=== PATIENT | male | born 1945 | race Two or more races ===

== ENCOUNTER 2019-09-08 17:03 | Inpatient (IN) | payer MEDICARE, OTHER ==
[~2019-09-08] VITALS: Ht 160 cm; Wt 59.9 kg
[2019-09-08 17:03] VITALS: BP 156/79
--- NOTE | 2019-09-08 17:03 | NUR ---
ED Nurse Note: Patient ALONZO MARTINEZ from home c/o right hip pain S/P suspected fall today. Per EMS, pt was found on the floor by his caregiver. Noted with hematoma on right hip. Pt has hx of dementia. Alert and orientedx3, verbally responsive. Not in any distress. will cont to monitor.
--- NOTE | 2019-09-08 17:10 | NUR ---
ED Nurse Note: IV line established. Blood and urine collected and sent to lab.
[2019-09-08 17:42] LABS: APPEARANCE,URINE SLIGHTLY CLOUDY; BILIRUBIN, URINE NEGATIVE (NEGATIVE); GLUCOSE, URINE (UA) NEGATIVE (NEGATIVE); KETONES,URINE NEGATIVE (NEGATIVE); LEUKOCYTE ESTERASE ,URINE NEGATIVE (NEGATIVE); NITRITE,URINE NEGATIVE (NEGATIVE); PH,URINE 7 (4.5-8.0); PROTEIN,URINE 1+ (NEGATIVE); UROBILINOGEN,URINE 4 MG/DL (0.0-1.0)
[2019-09-08 17:45] LABS: COLOR,URINE YELLOW
[2019-09-08 17:50] LABS: HEMATOCRIT 42.1 % (42.0-52.0); HEMOGLOBIN 13.7 G/DL (14.2-18.0); INR 0.9 (0.9-1.1); LYMPHOCYTES % (AUTO) 13.5 % (20.0-45.0); MEAN CORPUSCULAR VOLUME 89 FL (80-99); MONOCYTES % (AUTO) 14.8 % (1.0-10.0); NEUTROPHILS % (AUTO) 68.7 % (45.0-75.0); PLATELET COUNT 256 K/UL (150-450); RED BLOOD COUNT 4.74 M/UL (4.70-6.10); RED CELL DISTRIBUTION WIDTH 13.5 % (11.6-14.8); WHITE BLOOD COUNT 10.3 K/UL (4.8-10.8)
[2019-09-08 18:04] LABS: CREATINE KINASE 352 U/L (26-308)
[2019-09-08 18:11] LABS: ALANINE AMINOTRANSFERASE 27 U/L (12-78); ALBUMIN 3.2 G/DL (3.4-5.0); ALBUMIN/GLOBULIN RATIO 0.7 (1.0-2.7); ALKALINE PHOSPHATASE 90 U/L (46-116); ANION GAP 8 mmol/L (5-15); ASPARTATE AMINO TRANSFERASE 34 U/L (15-37); BILIRUBIN,TOTAL 0.6 MG/DL (0.2-1.0); BLOOD UREA NITROGEN 26 mg/dL (7-18); CARBON DIOXIDE 26 MMOL/L (21-32); CHLORIDE 110 MMOL/L (98-107); CREATININE 0.8 MG/DL (0.55-1.30); POTASSIUM 3.9 MMOL/L (3.5-5.1); SODIUM 144 MMOL/L (136-145)
--- NOTE | 2019-09-08 18:43 | Emergency Room Report ---
History of Present Illness General Chief Complaint: Multiple Trauma/Fall Source: EMS Present Illness HPI Patient is a 74-year-old male who presented after unwitnessed fall. Patient was noted to have some bruising to his right side of his lower extremity. He reports having some increased difficulty with urination. He was brought from home by EMS. He had not been having any increased difficulty with breathing. Allergies: Coded Allergies: No Known Allergies (Unverified , 09/08/19) COVID-19 Screening Contact w/high risk pt: No Recent Travel to affected area: No Experienced COVID-19 symptoms?: No Patient History Reviewed Nursing Documentation: PMH: Agreed; PSxH: Agreed Nursing Documentation-PM Past Medical History: No History, Except For Hx Hypertension: Yes Review of Systems All Other Systems: negative except mentioned in HPI Physical Exam Vital Signs Date Time Temp Pulse Resp B/P (MAP) Pulse Ox O2 Delivery O2 Flow Rate FiO2 09/08/19 16:58 97.5 82 16 156/81 (106) 98 Room Air Sp02 EP Interpretation: reviewed, normal General Appearance: normal inspection, well appearing, no apparent distress, alert, GCS 15 Head: atraumatic ENT: normal ENT inspection, hearing grossly normal, normal voice Neck: normal inspection, full range of motion, supple, no bony tend Respiratory: normal inspection, lungs clear, normal breath sounds, no respiratory distress, no retraction, no wheezing Cardiovascular #1: regular rate, rhythm, no edema Gastrointestinal: normal inspection, normal bowel sounds, non tender, soft, no guarding, no hernia Genitourinary: no CVA tenderness Musculoskeletal: normal inspection, back normal, decreased range of motion, normal range of motion Neurologic: alert, motor strength/tone normal, sweetbread trimmer III-XII nml as tested, responsive, speech normal, normal inspection Psychiatric: normal inspection, judgement/insight normal, mood/affect normal Medical Decision Making Diagnostic Impression: Primary Impression: Fall Additional Impression: Hip fracture ER Course Patient presented for fall. Differential diagnosis included was not limited to rhabdomyolysis, CVA, close head injury, syncopal episode, hip fracture among others. Because of complexity of patient's case laboratory tests and imaging studies were ordered. Patient was noted to be awake and alert. CT imaging was ordered due to patient's recent fall. X-ray imaging of the pelvis showed femoral neck fracture. Patient was given pain medication. Dr. Blake Moran will be contacted for inpatient management due to panel physician. EKG interpreted by me showed normal sinus rhythm without acute ST or T wave changes rate of 78. Dr. Matthieu Cárdenas was contacted for orthopedic consult. Labs Test 09/08/19 17:10 White Blood Count 10.3 K/UL (4.8-10.8) Red Blood Count 4.74 M/UL (4.70-6.10) Hemoglobin 13.7 G/DL (14.2-18.0) Hematocrit 42.1 % (42.0-52.0) Mean Corpuscular Volume 89 FL (80-99) Mean Corpuscular Hemoglobin 29.0 PG (27.0-31.0) Mean Corpuscular Hemoglobin Concent 32.7 G/DL (32.0-36.0) Red Cell Distribution Width 13.5 % (11.6-14.8) Platelet Count 256 K/UL (150-450) Mean Platelet Volume 6.7 FL (6.5-10.1) Neutrophils (%) (Auto) 68.7 % (45.0-75.0) Lymphocytes (%) (Auto) 13.5 % (20.0-45.0) Monocytes (%) (Auto) 14.8 % (1.0-10.0) Eosinophils (%) (Auto) 1.0 % (0.0-3.0) Basophils (%) (Auto) 2.0 % (0.0-2.0) Prothrombin Time 9.6 SEC (9.30-11.50) Prothromb Time International Ratio 0.9 (0.9-1.1) Activated Partial Thromboplast Time 20 SEC (23-33) Urine Color Yellow Urine Appearance Slightly cloudy Urine pH 7 (4.5-8.0) Urine Specific [place] 1.015 (1.005-1.035) Urine Protein 1+ (NEGATIVE) Urine Glucose (UA) Negative (NEGATIVE) Urine Ketones Negative (NEGATIVE) Urine Blood Negative (NEGATIVE) Urine Nitrite Negative (NEGATIVE) Urine Bilirubin Negative (NEGATIVE) Urine Urobilinogen 4 MG/DL (0.0-1.0) Urine Leukocyte Esterase Negative (NEGATIVE) Urine RBC 0-2 /HPF (0 - 0) Urine WBC 0 /HPF (0 - 0) Urine Squamous Epithelial Cells Occasional /LPF Urine Amorphous Sediment Moderate /LPF (NONE) Urine Bacteria Few /HPF (NONE) Sodium Level 144 MMOL/L (136-145) Potassium Level 3.9 MMOL/L (3.5-5.1) Chloride Level 110 MMOL/L (98-107) Carbon Dioxide Level 26 MMOL/L (21-32) Anion Gap 8 mmol/L (5-15) Blood Urea Nitrogen 26 mg/dL (7-18) Creatinine 0.8 MG/DL (0.55-1.30) Estimat Glomerular Filtration Rate > 60 mL/min (>60) Glucose Level 110 MG/DL (74-106) Calcium Level 9.0 MG/DL (8.5-10.1) Total Bilirubin 0.6 MG/DL (0.2-1.0) Aspartate Amino Transf (AST/SGOT) 34 U/L (15-37) Alanine Aminotransferase (ALT/SGPT) 27 U/L (12-78) Alkaline Phosphatase 90 U/L (46-116) Total Creatine Kinase 352 U/L (26-308) Pro-B-Type Natriuretic Peptide 109 pg/mL (0-125) Total Protein 7.7 G/DL (6.4-8.2) Albumin 3.2 G/DL (3.4-5.0) Globulin 4.5 g/dL Albumin/Globulin Ratio 0.7 (1.0-2.7) Thyroid Stimulating Hormone (TSH) 1.325 uiU/mL (0.358-3.740) Last Vital Signs Date Time Temp Pulse Resp B/P (MAP) Pulse Ox O2 Delivery O2 Flow Rate FiO2 09/08/19 17:03 82 16 Room Air 09/08/19 17:03 97.5 156/79 99 Status: unchanged Disposition: ADMITTED INPATIENT Condition: Stable Prakash Damon MD Sep 08, 2019 18:43
[2019-09-08] MEDS ORDERED: Morphine Sulfate 2mg/ml Inj(IV/IM USE ONLY) IVP ONE (18:45)
[2019-09-08 19:00] VITALS: BP 145/75
[2019-09-08] MEDS ORDERED: LISINOPRIL5 MG ORAL (19:21)
--- NOTE | 2019-09-08 19:29 | NUR ---
Patients son Roosevelt called, left his number [phone] to be called.
--- NOTE | 2019-09-08 19:45 | NUR ---
Spoke with Roosevelt-patients son-informed that patient needs to stay in the hospital-either [facility] or transfer. Roosevelt appreciated, will wait until final destination. We will inform him.
[2019-09-08] MEDS ORDERED: Morphine Sulfate 4mg/ml Inj (IV USE ONLY) IVP PRN (20:30)
[2019-09-08] MEDS ORDERED: Morphine Sulfate 2mg/ml Inj(IV/IM USE ONLY) IVP PRN (20:30)
[2019-09-08] MEDS ORDERED: Nitroglycerin Subl 0.4mg tab SL PRN (20:30)
[2019-09-08] MEDS ORDERED: Acetaminophen 650 MG SUPP RECTAL PRN ×2 (20:30)
[2019-09-08] MEDS ORDERED: Miralax 17gm pkt ORAL PRN (20:30)
--- NOTE | 2019-09-08 20:48 | NUR ---
ED Nurse Note: Pt was taken for CT via billy, accompanied by a tech.
--- NOTE | 2019-09-08 20:48 | NUR ---
Jesse medina in EDM - 09/08/19 at 2055 by CHAYO ED Nurse Note: Pt was taken for Xray via billy, accompanied by a tech.
--- NOTE | 2019-09-08 20:55 | NUR ---
ED Nurse Note: Pt came back from CT, not in any distress.
[2019-09-08] MEDS: Docusate 100mg cap ORAL SCH (20:58)
--- NOTE | 2019-09-08 21:18 | Diagnostic Imaging Report ---
Indication: Headache Technique: Contiguous 5 mm thick transaxial imaging of the head obtained in a Siemens Sensation [address] scanner. Soft tissue and bone windows generated. Automatic Exposure Control was utilized. Total Dose length Product (DLP): 1018.8mGycm CT Dose Index Volume (CTDIvol): 53.4 mGy Comparison: none Findings: There is mild prominence of the ventricles, basal cisterns, and cerebral sulci consistent with atrophy. Mild, nonspecific, white matter hypoattenuation is noted throughout the brain consistent with chronic small vessel disease. There is no midline shift, edema, acute hemorrhage, mass effect, or abnormal extra-axial fluid collections. Bones are unremarkable. Impression: No acute intracranial bleed, mass effect or edema. Mild atrophy of the brain. Nonspecific white matter hypoattenuation probably due to chronic small vessel disease. The CT scanner at [facility] is accredited by the [employer] and the scans are performed using dose optimization techniques as appropriate to a performed exam including Automatic Exposure control.
[2019-09-08 21:50] VITALS: BP 147/82
--- NOTE | 2019-09-08 21:50 | NUR ---
TRANSFER TO FLOOR: Patient transferred to Medrg unit. Report given to Magi RN. Pt alert and orientedx3, verbally responsive. Not in any distress. No SOB. Afebrile. Sinus rhythm. IV line on right AC 20g patent and intact. With FC 16Fr patent and draining well. No skin issues. Med recon done. All belongings sent with the patient. Son aware of the transfer.
--- NOTE | 2019-09-08 21:54 | NUR ---
ED Nurse Note: Report given to Magi RN.
--- NOTE | 2019-09-08 21:58 | NUR ---
Spoke with Roosevelt-patients son, informed him of patients location, phone number for the nurses station also given.
[2019-09-08] MEDS: Enoxaparin 40mg Inj SUBQ SCH (22:00)
--- NOTE | 2019-09-08 22:00 | NUR ---
NURSE NOTES: PATIENT WAS SAFELY TRANSFERRED TO UNIT VIA RNEY, BELONGING LIST REVIEWED AND SIGNED. PATIENT IS AWAKE, AAOX1, ON ROOM AIR, NO ACUTE RESPIRATORY DISTRESS NOTED. HEMATOMA NOTED ON RIGHT HIP, BRUISING ON BILATERAL ELBOWS, AND RIGHT THIGHT. BILATERAL HEELS BOGGY. MARTINEZ IN IS PLACE, INTACT AND DRAINING WELL, MARTINEZ ANCHOR IN PLACE. IV ON RIGHT AC IS INTACT AND PATENT. BED IS LOCKED AND LOW, BED ALARMS ACTIVE, SIDE RAILS UPX2 AND CALL LIGHT IS WITHIN REACH, WILL CONTINUE TO MONITOR.
--- NOTE | 2019-09-08 22:04 | NUR ---
NURSE NOTES: PATIENT IS AT HIGH RISK FOR FALL. PLACED PATIENT IN ROOM NEAR NURSING STATION (411). YELLOW SOCKS, YELLOW GOWN, YELLOW ARM BAND IMPLEMENTED. BED ALARMS ACTIVE ON ZONE 1, SIDE RAILS UP X3, CALL LIGHT IS WITHIN REACH, PATIENT DEMONSTRATED CALL LIGHT USE. COMMUNICATED WITH TRAFFIC COURT REFEREE, STAFF AND CHARGE NURSE TO PERFORM FREQUENT ROUNDING. WILL CONTINUE TO MONITOR PATIENT CLOSELY.
--- NOTE | 2019-09-08 22:05 | NUR ---
NURSE NOTES: RECEIVED ADMISSION ORDERS FROM DR. REID, CONSULT WITH DR. PACK.
--- NOTE | 2019-09-08 22:30 | NUR ---
NURSE NOTES: PATIENT IS CONFUSED, PULLED OUT HIS MARTINEZ CATHETER. NEW MARTINEZ CATH WAS INSERTED, 16FR, INTACT AND PATENT. RECEIVED ORDERS FROM DR. PACK TO HOLD LOVENOX AND INITIATE RESTRAINTS FOR SAFELY.
[2019-09-09] VITALS: BP 144/45
[2019-09-09 04:00] VITALS: BP 139/70
--- NOTE | 2019-09-09 05:09 | NUR ---
NURSE NOTES: PICTURES TAKEN AND UPLOADED.
[2019-09-09 06:40] LABS: BASOPHILS % (AUTO) 0.9 % (0.0-2.0); EOSINOPHILS % (AUTO) 1.6 % (0.0-3.0); HEMATOCRIT 36.8 % (42.0-52.0); HEMOGLOBIN 12.8 G/DL (14.2-18.0); MEAN CORPUSCULAR VOLUME 87 FL (80-99); MONOCYTES % (AUTO) 14.4 % (1.0-10.0); NEUTROPHILS % (AUTO) 67.1 % (45.0-75.0); PLATELET COUNT 221 K/UL (150-450); RED BLOOD COUNT 4.23 M/UL (4.70-6.10); RED CELL DISTRIBUTION WIDTH 12.4 % (11.6-14.8); WHITE BLOOD COUNT 10.5 K/UL (4.8-10.8)
--- NOTE | 2019-09-09 06:51 | NUR ---
NURSE NOTES: SPOKE TO PATIENT'S SON ANA ESTRELLA REGARDING CONSENT FOR PATIENT'S RIGHT HIP HEMIARTHROPLASTY. SON INFORMED THAT HE WILL NOT CONSENT AT THIS TIME DUE TO INSURANCE ISSUE. HE IS UNSURE IF THE PROCEDURE WILL BE COVERED UNDER INSURANCE. HE IS STILL WAITING FOR THE INSURANCE COMPANY TO CALL BACK. WILL ENDORSE TO MORNING SHIFT TO FOLLOW UP.
[2019-09-09 07:02] LABS: ALANINE AMINOTRANSFERASE 20 U/L (12-78); ALBUMIN 2.8 G/DL (3.4-5.0); ALBUMIN/GLOBULIN RATIO 0.7 (1.0-2.7); ALKALINE PHOSPHATASE 75 U/L (46-116); ANION GAP 7 mmol/L (5-15); ASPARTATE AMINO TRANSFERASE 25 U/L (15-37); BILIRUBIN,TOTAL 0.9 MG/DL (0.2-1.0); BLOOD UREA NITROGEN 23 mg/dL (7-18); CALCIUM 8.5 MG/DL (8.5-10.1); CARBON DIOXIDE 27 MMOL/L (21-32); CHLORIDE 106 MMOL/L (98-107); CREATININE 0.7 MG/DL (0.55-1.30); POTASSIUM 3.9 MMOL/L (3.5-5.1); SODIUM 140 MMOL/L (136-145)
--- NOTE | 2019-09-09 07:15 | NUR ---
NURSE NOTES:Handoff received from Magi,RN. Patient received awake and alert and able to make needs known, Patient is confused and on bilateral soft wrist restraints due to impulsiveness and pulling at lines, patient removed simpson cath. Patient is on room air, and is NPO for procedure which family did not consent to. No diet order as NPO will follow up with MD. Patient has Simpson placed on 09/07 for retention. IV site is clean dry and intact, will continue to monitor patient.
--- NOTE | 2019-09-09 07:56 | NUR ---
HAND-OFF: Report given to SANDRA AGARWAL. Endorsed that patient is a fall risk. Endorsed to follow up with son, and dr. pyle, and dr. li for diet.
[2019-09-09 08:00] VITALS: BP 130/74
--- NOTE | 2019-09-09 08:33 | NUR ---
NURSE NOTES: Patient's son Roosevelt called and stated that Dr Lloyd has accepted patient at [facility] which is the patient's regular hospital. Informed Primary MD li to request transfer on behalf of patient family.
[2019-09-09] MEDS: Lisinopril 2.5mg tab ORAL SCH (09:39)
[2019-09-09] MEDS: Docusate 100mg cap ORAL SCH ×2 (09:39→20:29)
--- NOTE | 2019-09-09 11:32 | NUR ---
NURSE NOTES: Left message for Dr. Moran regarding patient & family request to transfer to [facility] to have surgery. Bed available at [facility] and accepting physician is Gabino Addendum: 09/09/19 at 1135 by LEON ARAUJO RN This note was written by Leon Araujo RN not Aamir Sherman RN. Leon is relieving Aamir while on lunch
--- NOTE | 2019-09-09 11:38 | NUR ---
*-* NO INSURANCE INFORMATION ON THE BAR UNABLE TO SEND CLINICALS OR REVIEWS *-*
--- NOTE | 2019-09-09 11:45 | NUR ---
NURSE NOTES: Called Dr Li to let him know that patient has been accepted at [facility] via Doctor Gabino. Dr li said to confirm patient has a bed at the hospital and then the transfer order can be processed. called bilingual patient support caseworker and asked them to confirm that patient has been accepted to [facility].
--- NOTE | 2019-09-09 11:58 | NUR ---
MANAGER INTERNAL NOTE CM INFORMED BY SANDRA AGARWAL THAT PATIENT IS TO BE TRANSFERRED TO [facility] UNDER THER CARE OF DR. ARAGON. CALL MADE TO [facility] TO CONFIRM ACCEPTANCE AT [phone]. S/W PERFECTO. PER PERFECTO, PATIENTS FAMILY HAS REQUESTED TRANSFER TO [facility]. PATIENT NEEDS TO HAVE AN ACCEPTING ORTHOPEDIC. STATES DR. ARAGON IS NOT AN ORTHOPEDIC MD THEREFORE THEY CANNOT HONOR THE TRANSFER REQUEST. STATES THAT THIS WOULD BE A LATERAL TRANSFER AND LATERAL TRANSFERS ARE NOT BEING ACCOMMODATED AT THIS TIME. Addendum: 09/09/19 at 1216 by CLARI MONSIVAIS LVN LVN CALL BACK RECEIVED FROM PERFECTO AT [facility] REQUESTING CLINICALS FOR REVIEW BY HOSPITALIST TEAM CLINICALS FAXED TO F: [phone]
[2019-09-09 12:00] VITALS: BP 124/70
--- NOTE | 2019-09-09 12:15 | Diagnostic Imaging Report ---
Indication: pain Pelvic trauma and pain Findings: Single AP view of the pelvis was performed. There is an acute intracapsular fracture of the right femoral neck. Bones are osteopenic. No other fractures are seen. IMPRESSION: Limited study showing an acute mildly displaced intracapsular fracture of the right femoral neck
--- NOTE | 2019-09-09 14:22 | NUR ---
NURSE NOTES: Asia from case management notified me that patient cannot be transferred to [facility] at this time as they are not accepting transfers. Notified Luz Maria Li to update family that patient is not being transferred. Guillermo asked if patient is able to be discharged, informed family that patient likely needs to have surgery and asked if they wanted to go forward with surgery here or not.
--- NOTE | 2019-09-09 14:29 | History and Physical Report ---
DATE OF ADMISSION: 09/08/2019 CHIEF COMPLAINT AND REASON FOR HOSPITALIZATION: The patient admitted with a hip fracture. HISTORY OF PRESENT ILLNESS: The patient has dementia according to the family otherwise been in good health. Had a ground level fall with a right hip fracture. ALLERGIES: None known. HABITS: He is a nonsmoker and nondrinker. MEDICATIONS: No regular medicines. PAST SURGICAL HISTORY: Left knee. SYSTEM REVIEW: Negative, but the patient is inarticulate historian. The family states this is his only major medical problem. PHYSICAL EXAMINATION: VITAL SIGNS: Temperature 97.8, pulse 72, respirations 20, blood pressure 139/70. GENERAL: This is a well-developed man, alert, no acute distress. HEAD, EYES, EARS, NOSE, AND THROAT: Sclerae are nonicteric. Ocular motions intact in all directions. Oral mucosa is moist. NECK: No adenopathy. LUNGS: Clear. HEART: Regular rhythm. No murmur. ABDOMEN: Soft without organomegaly or masses. EXTREMITIES: No edema. His legs are crossed. The feet are warm. NEUROLOGIC: He is alert and responsive. Ocular motions intact in all directions. Smile symmetric. Tongue is midline. He moves all extremities. IMPRESSION: 1. Ground-level fall. 2. Right hip fracture. 3. History of prior left knee surgery. 4. Dementia. 5. CT brain scan showed mild involutional changes. 6. Incomplete database. PLAN: The patient's laboratories have been reviewed. He is being hydrated and prepared for possible hip surgery. He does have a low serum albumin of uncertain reason. Remainder of laboratories are unremarkable at this time. We will watch him closely for development of any complications. I will get orthopedic consultation. The family's request a transfer to [facility], but I do not know if this is feasible with the current bed situation. Blake Moran M.D. DR: LORENA JOB#: [id number] CC:
--- NOTE | 2019-09-09 15:11 | NUR ---
*-* INSURANCE *-* ALL AVAILABLE CLINICAL HAVE BEEN FAXED TO: Rosi CM: Bimal #[phone]
--- NOTE | 2019-09-09 15:16 | NUR ---
PEDIATRIC DERMATOLOGIST NOTE CALL RECEIVED FROM SHARONA AT [facility]. NO NEED FOR HIGHER LEVEL OF CARE DX WOULD BE A LATERAL TRANSFER. STATES THAT PATIENTS CASE HAS BEEN REVIEWED AND IT HAS BEEN DETERMINED THAT [place] C[place] CAN [place] [facility] [place]GED ACCORDINGLY UPON MEDICAL CLEARANCE. CHARGE NURSE ZARA DELGADO
[2019-09-09 16:00] VITALS: BP 131/74
--- NOTE | 2019-09-09 17:08 | NUR ---
CASE MANAGEMENT:INITIAL REVIEW 74 YR OLD MALE BIBA FROM HOME CC;MULTIPLE TRAUMA/FALL SI;RIGHT HIP FRACTURE 98.2 88 19 156/81 95% ON RA BUN 26 TCK 352 ALB 3.2 HIP/PELVIS X=RAY ~ Limited study showing an acute mildly displaced intracapsular fracture of the right femoral neck HEAD CT ~ No acute intracranial bleed, mass effect or edema. IS;MORPHINE IV ONCE ADMITTED TO MED SURG DCP;FROM HOME
--- NOTE | 2019-09-09 19:17 | NUR ---
HAND-OFF: Report given to SANDRA Mendez.
--- NOTE | 2019-09-09 19:30 | NUR ---
NURSE NOTES: Patient in bed, confused, no SOB noted. With Holguin cath intact. With bilateral soft wrist restraints. Pulses palpable. Call lights for assistance in reach. Bed in lowest position, lock engaged and alarm on. Will continue plan of care.
[2019-09-09 20:00] VITALS: BP 136/81
[2019-09-09] MEDS: Enoxaparin 40mg Inj SUBQ SCH (20:30)
[2019-09-10] VITALS: BP 129/76
[2019-09-10 04:00] VITALS: BP 145/83
--- NOTE | 2019-09-10 06:39 | NUR ---
NURSE NOTES: Patient was combative when staff was cleaning him.
--- NOTE | 2019-09-10 07:15 | NUR ---
NURSE NOTES: Handoff received from SANDRA Crowley. Stated that patient is combative and lashes out when cleaned. Patient is confused, in bilateral soft wrist restraints for removing lines. Patient resting in bed, still NPO, IV fluids running at prescribed rate. On room air, no signs of distress noted. Patient denies pain at this time. call light is at reach, bed in the low and locked position with bed alarm on, will continue to monitor patient.
--- NOTE | 2019-09-10 07:34 | NUR ---
NURSE NOTES:Dr Moran made rounds on patient. No new orders given.
--- NOTE | 2019-09-10 07:42 | NUR ---
HAND-OFF: Report given to SANDRA Robles.
[2019-09-10 07:53] VITALS: BP 143/77
--- NOTE | 2019-09-10 08:30 | General Progress Note ---
Assessment/Plan Problem List: (1) Alzheimer disease ICD Codes: G30.9 - Alzheimer's disease, unspecified; F02.80 - Dementia in other diseases classified elsewhere without behavioral disturbance SNOMED: 36580567 (2) Hip fracture ICD Codes: S72.009A - Fracture of unspecified part of neck of unspecified femur , initial encounter for closed fracture SNOMED: 832438913 (3) Fall ICD Codes: W19.XXXA - Unspecified fall, initial encounter SNOMED: 9678455, 660099857 Assessment/Plan: Called [facility] no bed, needs hip surgery Subjective Constitutional: Reports: weakness HEENT: Reports: no symptoms Cardiovascular: Reports: no symptoms Respiratory: Reports: no symptoms Gastrointestinal/Abdominal: Reports: no symptoms Genitourinary: Reports: other - simpson Neurologic/Psychiatric: Reports: no symptoms Endocrine: Reports: no symptoms Hematologic/Lymphatic: Reports: no symptoms Allergies: Coded Allergies: No Known Allergies (Unverified , 09/08/19) Objective Last 24 Hour Vital Signs Date Time Temp Pulse Resp B/P (MAP) Pulse Ox O2 Delivery O2 Flow Rate FiO2 09/10/19 07:53 97.7 71 18 143/77 (99) 97 09/10/19 04:00 97.4 72 22 145/83 (103) 97 09/10/19 00:00 98.0 79 20 129/76 (93) 93 09/09/19 20:53 Room Air 09/09/19 20:00 98.2 78 20 136/81 (99) 96 09/09/19 16:00 98.0 79 19 131/74 (93) 97 09/09/19 12:00 98.2 81 20 124/70 (88) 98 09/09/19 09:39 130/74 09/09/19 09:00 Room Air Intake and Output 09/09/19 09/10/19 19:00 07:00 Output Total 800 ml 800 ml Balance -800 ml -800 ml Output Urine Total 800 ml 800 ml Height (Feet): 5 Height (Inches): 4.00 Weight (Pounds): 145 General Appearance: no apparent distress EENT: normal ENT inspection Neck: normal alignment Cardiovascular: normal rate, regular rhythm Respiratory/Chest: lungs clear Abdomen: non tender, soft Extremities: other - min eccymoses r hip Edema: no edema noted Arm (L), no edema noted Arm (R), no edema noted Leg (L), no edema noted Leg (R), no edema noted Pedal (L), no edema noted Pedal (R), no edema noted Generalized Blake Moran MD Sep 10, 2019 08:30
[2019-09-10] MEDS: Docusate 100mg cap ORAL SCH ×2 (09:01→20:43)
[2019-09-10] MEDS: Lisinopril 2.5mg tab ORAL SCH (09:01)
--- NOTE | 2019-09-10 09:31 | NUR ---
SOFTWARE ENGINEER WEB SERVICES NOTE CALL MADE TO JAN RUSSELL FOR [facility] @ [phone] INFORMED OF THAT SON IS CONCERNED IN RE TO PATIENTS HOSPITAL STAY NOT BEING COVERED BY INSURANCE. INFORMED DREW THAT TRANSFER REQUEST WAS SUBMITTED TO [facility] AND DENIED PER SHARONA. PER SHARONA, PATIENT DOES NOT REQUIRE HIGHER LEVEL OF CARE. PER DREW, CONFIRMED PATIENTS HOSPITALIZATION WILL BE AUTHORIZED INCLUDING ANY SURGICAL PROCEDURES. DREW STATES TO CONTACT HIM FOR ASSISTANCE WITH REHABILITATION SERVICES WHEN NEEDED. PATIENTS SON ANA ([phone]) AND INFORMED THAT HIS HOSPITALIZATION IS [facility]ED [facility]
[2019-09-10 10:56] LABS: INR 0.9 (0.9-1.1)
--- NOTE | 2019-09-10 11:00 | Consultation ---
DATE OF CONSULTATION: 09/09/2019 ORTHOPEDIC CONSULTATION CONSULTING PHYSICIAN: Trey Cárdenas M.D. CHIEF COMPLAINT: HISTORY OF PRESENT ILLNESS: This is a pleasant 74-year-old gentleman who presented after he had a witnessed fall. He was brought to the emergency room last night. Orthopedic consultation obtained for further care and recommendation. Overnight, the patient was pretty confused. He pulled out his Holguin catheter. PAST MEDICAL HISTORY: Per the intake chart. SURGICAL HISTORY: Per the intake chart. MEDICATIONS: Per the intake chart. PHYSICAL EXAMINATION: EXTREMITIES: He has some ecchymosis along the right hip. Right shortened and internally rotated. Dorsalis pedal pulse +2. Posterior calf is soft. DIAGNOSTIC DATA: Imaging study showed displaced femoral neck fracture ASSESSMENT: Displaced femoral neck fracture. DISCUSSION: At this point, what I recommend is to go ahead and proceed with right hip hemiarthroplasty. Risks, limitations, expectations, and complications of procedure were discussed in detail with the son. Once we medically optimized in preparation of the surgery. ADDENDUM TO NOTE: The patient's family member has requested a transfer to [facility] for definitive treatment as the patient bed available there upon transfer. If the patient is not able to be transferred, however, then we recommend proceeding with right hip hemiarthroplasty. I will continue to see the patient while in-house . Trey Cárdenas M.D. DR: KARY JOB#: [id number] CC:
--- NOTE | 2019-09-10 11:40 | NUR ---
NURSE NOTES:Pre-op checklist completed with information available from chart, as patient is confused. Patient has been NPO since 09/07 admission date and time. sports trainer Fiona verified that primary MD Moran is aware and okay with surgery continuing today. Consent received via telephone from the son Roosevelt, consent obtained from Fiona and Patricia montgomery RN, consent verified and placed in the chart.
[2019-09-10 12:00] VITALS: BP 136/80
--- NOTE | 2019-09-10 13:43 | NUR ---
*-* INSURANCE *-* ALL AVAILABLE CLINICAL HAVE BEEN FAXED TO: Rosi CM: Bimal #[phone]
--- NOTE | 2019-09-10 13:49 | NUR ---
CHARGE NURSE NOTE: Right hip surgery postponed till tomorrow around 11am. NPO after midnight.
--- NOTE | 2019-09-10 15:24 | NUR ---
CASE MANAGEMENT:REVIEW SI;RIGHT HIP FRACTURE 98.0 73 22 145/83 93% ON RA BUN 23 IS;MORPHINE IV Q3 HRS PRN IVF NS @ 100 ML/HR LOVENOX SUBQ QD ZESTRIL PO QD MED SURG STATUS DCP;FROM HOME PLAN;NPO AFTER MIDNIGHT RT HIP HEMIARTHROPLASTY
[2019-09-10 16:00] VITALS: BP 129/77
--- NOTE | 2019-09-10 19:25 | NUR ---
HAND-OFF: Report given to SANDRA Elise.
--- NOTE | 2019-09-10 19:30 | NUR ---
NURSE NOTES: Patient asleep in bed, no SOB noted, with signs of minimal pain. With bilateral soft wrist restraints. Call light in reach. Bed in lowest, lock engaged and alarm on. Will continue plan of care.
[2019-09-10 20:00] VITALS: BP 121/77
[2019-09-10] MEDS: Enoxaparin 40mg Inj SUBQ SCH (20:44)
--- NOTE | 2019-09-10 21:30 | NUR ---
NURSE NOTES: Attempted to release patient's left hand from restraint but he became combative and hitting RN. Applied restraint back with safety measures. Will continue to monitor.
[2019-09-11] VITALS (16 sets, daily range): BP systolic 114–146; BP diastolic 44–94
[2019-09-11 06:42] LABS: EOSINOPHILS % (AUTO) 2.7 % (0.0-3.0); HEMATOCRIT 37.1 % (42.0-52.0); HEMOGLOBIN 12.8 G/DL (14.2-18.0); LYMPHOCYTES % (AUTO) 17.1 % (20.0-45.0); MEAN CORPUSCULAR VOLUME 86 FL (80-99); MONOCYTES % (AUTO) 13.6 % (1.0-10.0); NEUTROPHILS % (AUTO) 65.6 % (45.0-75.0); PLATELET COUNT 254 K/UL (150-450); RED BLOOD COUNT 4.31 M/UL (4.70-6.10); RED CELL DISTRIBUTION WIDTH 11.6 % (11.6-14.8)
[2019-09-11 07:18] LABS: ANION GAP 10 mmol/L (5-15); BLOOD UREA NITROGEN 13 mg/dL (7-18); CALCIUM 8.3 MG/DL (8.5-10.1); CARBON DIOXIDE 24 MMOL/L (21-32); CHLORIDE 103 MMOL/L (98-107); CREATININE 0.6 MG/DL (0.55-1.30); POTASSIUM 3.5 MMOL/L (3.5-5.1); SODIUM 137 MMOL/L (136-145)
--- NOTE | 2019-09-11 07:48 | NUR ---
HAND-OFF: Report given to SANDRA Porter.
--- NOTE | 2019-09-11 07:50 | NUR ---
NURSE NOTES: Received patient in bed,awake, not in respiratory/cardiac distress. V/S stable. patient denies pain @this time. Patient is on soft bilateral restraints. No swelling, bruise on wrist. Bed is in lowest position and locked. Bed alarm is on. Frequent visual check for safety and needs. On NPO for Sx. Will continue plan of care.
[2019-09-11] MEDS: Docusate 100mg cap ORAL SCH ×2 (08:25→18:14)
[2019-09-11] MEDS: Lisinopril 2.5mg tab ORAL SCH (08:25)
--- NOTE | 2019-09-11 09:26 | NUR ---
CUP TRIMMING MACHINE OPERATOR NOTE CALL RECEIVED FROM JAN RUSSELL AT [facility] TO INFORM THAT THEY ARE CONSIDERING HAVING PATIENT TRANSFERRED TO [facility] FOR HIP FX SURGERY. STATES HE IS CONFIRMING WITH HIS TEAM AND WILL NOTIFY THIS CM BY 10:00 AM. Addendum: 09/11/19 at 0930 by CLARI MONSIVAIS LVN LVN GARY HENRIQUEZ RN INFORMED. CM WILL NOTIFY DR PACK Addendum: 09/11/19 at 0958 by CLARI MONSIVAIS LVN LVN DR PACK NOTIFIED OF POSSIBLE TRANSFER TO [facility]. CALL MADE TO PATIENTS ADRIEN PEREZ @ [phone] WITH NO ANSWER. LEFT REQUESTING CALL BACK.
--- NOTE | 2019-09-11 09:40 | NUR ---
NURSE NOTES: RN was informed by Asia BORGES that patient's insurance tried to transfer patient to [facility], Rn informed Dr. Cárdenas and also Asia informed Dr. Cárdenas .RN requested to to talk to the family.
--- NOTE | 2019-09-11 10:00 | NUR ---
NURSE NOTES: Received call from Asia BORGES, she stated that she spoke to patient's son and he agreed with [place]. She said she informed Dr. Cárdenas and surgery.
--- NOTE | 2019-09-11 10:13 | NUR ---
RESIDENTIAL LAWN SPECIALIST NOTE CALL RECEIVED FROM DREW AT [facility] TO INFORM THIS CM THAT MD MAY MOVE FORWARD WITH PATIENTS SURGERY HERE AT [facility]. PER DREW, THIS HOSPITALIZATION AND SURGERY WILL BE AUTHORIZED. ALSO STATES THAT HE WILL PROVIDE INFO FOR CONTRACTED FACILITIES FOR POST OP REHAB. SANDRA HENRIQUEZ, SURGERY AND DR PACK INFORMED CALL BACK REC'D FROM PATIENTS SON ANA. CONFIRMS HE IS IN AGREEMENT WITH INSURANCE DECISION TO MOVE FORWARD WITH SURGERY HERE AT [facility] TODAY.
[2019-09-11] MEDS ORDERED: Duramorph PF 5mg/10ml amp ONE ×2 (10:28→10:36)
[2019-09-11] MEDS ORDERED: Bupivacaine 0.5% Inj 30 ml vial INJ ONE (10:28)
[2019-09-11] MEDS ORDERED: Ketorolac 30mg Inj ONE (10:36)
[2019-09-11] MEDS ORDERED: NeoSporin Gu Irrig 1ml Amp IRRIG ONE (10:36)
[2019-09-11] MEDS ORDERED: Bacitracin 50000 Units Vial ONE (10:36)
[2019-09-11] MEDS ORDERED: fentaNYL 100 mcg/2 mL IV ONE (10:37)
[2019-09-11] MEDS ORDERED: Propofol 200mg/20ml IV ONE (10:47)
--- NOTE | 2019-09-11 11:00 | Anethesia Preoperative Eval ---
Anesthesia Pre-op PMH/ROS General Date of Evaluation: Sep 11, 2019 Time of Evaluation: 10:57 Anesthesiologist: Jj ASA Score: ASA 3 Mallampati Score Class I : Soft palate, uvula, fauces, pillars visible Class II: Soft palate, uvula, fauces visible Class III: Soft palate, base of uvula visible Class IV: Only hard plate visible Mallampati Classification: Class III Surgeon: Avi Diagnosis: R hip Fx Surgical Procedure: R hip hemiarthroplasty Anesthesia History: none Family History: no anesthesia problems Allergies: Coded Allergies: No Known Allergies (Unverified , 09/08/19) Medications: see eMAR Patient NPO?: Yes NPO Date: Sep 11, 2019 NPO Time: 0000 Past Medical History Cardiovascular: Reports: HTN; Denies: CAD, MO, valve dz, arrhythmia, other Pulmonary: Denies: asthma, COPD, HOSSEIN, other Gastrointestinal/Genitourinary: Reports: GERD, CRI; Denies: ESRD, other Neurologic/Psychiatric: Reports: dementia; Denies: CVA, depression/anxiety, TIA, other Endocrine: Denies: DM, hypothyroidism, steroids, other HEENT: Denies: cataract (L), cataract (R), glaucoma, [place] (L), [place] (R), other Hematology/Immune: Denies: anemia, DVT, bleeding disorder, other Musculoskeletal/Integumentary: Reports: OA, other - contructed; Denies: RA, DJD, DDD, edema Other: other PMH Narrative: as above PSxH Narrative: See H&P Anesthesia Pre-op Phys. Exam Physician Exam Last Vital Signs Date Time Temp Pulse Resp B/P (MAP) Pulse Ox O2 Delivery O2 Flow Rate FiO2 09/11/19 09:00 Room Air 09/11/19 08:25 132/71 09/11/19 08:00 98.4 60 19 99 Constitutional: NAD Neurologic: other - unable t obtaie Cardiovascular: RRR Respiratory: CTA Gastrointestinal: S/NT/ND Airway Exam Mallampati Score: Class II MO: limited Neck: stiff ROM: limited Teeth: missing Dentures: no upper, no lower Anesthesia Pre-op A/P Labs Hematology Test 09/11/19 05:22 White Blood Count 8.0 K/UL (4.8-10.8) Red Blood Count 4.31 M/UL (4.70-6.10) L Hemoglobin 12.8 G/DL (14.2-18.0) L Hematocrit 37.1 % (42.0-52.0) L Mean Corpuscular Volume 86 FL (80-99) Mean Corpuscular Hemoglobin 29.7 PG (27.0-31.0) Mean Corpuscular Hemoglobin Concent 34.6 G/DL (32.0-36.0) Red Cell Distribution Width 11.6 % (11.6-14.8) Platelet Count 254 K/UL (150-450) Mean Platelet Volume 5.4 FL (6.5-10.1) L Neutrophils (%) (Auto) 65.6 % (45.0-75.0) Lymphocytes (%) (Auto) 17.1 % (20.0-45.0) L Monocytes (%) (Auto) 13.6 % (1.0-10.0) H Eosinophils (%) (Auto) 2.7 % (0.0-3.0) Basophils (%) (Auto) 1.0 % (0.0-2.0) Chemistry Test 09/11/19 05:22 Sodium Level 137 MMOL/L (136-145) Potassium Level 3.5 MMOL/L (3.5-5.1) Chloride Level 103 MMOL/L (98-107) Carbon Dioxide Level 24 MMOL/L (21-32) Anion Gap 10 mmol/L (5-15) Blood Urea Nitrogen 13 mg/dL (7-18) Creatinine 0.6 MG/DL (0.55-1.30) Estimat Glomerular Filtration Rate > 60 mL/min (>60) Glucose Level 84 MG/DL (74-106) Calcium Level 8.3 MG/DL (8.5-10.1) L Risk Assessment & Plan Assessment: ASA 3 Plan: SAB vs GA Status Change Before Surgery: No Pre-Antibiotics Drug: Ancef 1gr. Given Within 1 Hr of Incision: Yes Time Given: 11:52 Maik Gardner MD Sep 11, 2019 11:00
--- NOTE | 2019-09-11 11:05 | NUR ---
NURSE NOTES: Patient was picked up by surgery aid in stable condition. Verified patient. Holguin and IV intact.
[2019-09-11] MEDS ORDERED: Midazolam 2mg/2ml Inj ONE (11:23)
[2019-09-11] MEDS ORDERED: NS Irrig 1000ml IRRIG ONE ×2 (11:37→12:05)
[2019-09-11] MEDS ORDERED: Tranexamic Acid 1,000 MG in NS 65 ML IV ONE (11:45)
--- NOTE | 2019-09-11 11:52 | Pre-Procedure Note/Attestation ---
Pre-Procedure Note/Attestation Complete Prior to Procedure Planned Procedure: right Procedure Narrative: right hip hemiarthrosplasty Indications for Procedure Pre-Operative Diagnosis: right hip fracture Attestation I attest that I discussed the nature of the procedure; its benefits; risks and complications; and alternatives (and the risks and benefits of such alternatives ), prior to the procedure, with the patient (or the patient's legal electronics parts sales representative). I attest that, if there was a reasonable possibility of needing a blood transfusion, the patient (or the patient's legal electronics parts sales representative) was given the [facility] standardized written summary, pursuant to the Jordi Miya Blood Safety Act ([place] Health and Safety Code # 1645, as amended). I attest that I re-evaluated the patient just prior to the surgery and that there has been no change in the patient's H&P, except as documented below: Trey Cárdenas MD Sep 11, 2019 11:52
--- NOTE | 2019-09-11 11:53 | Operative Note - PDOC ---
Operative Note Operative Note Pre-op Diagnosis: right hip fracture Procedure: see op report Post-op Diagnosis: same as pre-op plus Operative Findings: consistent w/pre-op dx studies Anesthesia: MAC Specimen: none Complications: none Condition: stable Estimated Blood Loss: none Implant(s) used?: Yes Trey Cárdenas MD Sep 11, 2019 11:53
[2019-09-11] MEDS ORDERED: Morphine Sulfate 2mg/ml Inj(IV/IM USE ONLY) IVP PRN ×2 (12:00)
[2019-09-11] MEDS ORDERED: Sterile Water Irrig 1000ml IRRIG ONE (12:00)
[2019-09-11] MEDS ORDERED: HYDROcodone/Acetamin 5/325 tab ORAL PRN (12:00)
[2019-09-11] MEDS ORDERED: LR 1000ml ONE (12:00)
[2019-09-11] MEDS ORDERED: NS Irrig 1000ml ONE (12:00)
[2019-09-11] MEDS ORDERED: HYDROcodone/Acetamin 7.5/325 tab ORAL PRN (12:00)
[2019-09-11] MEDS ORDERED: oxyCODONE 5mg IR tab ORAL PRN (12:00)
[2019-09-11] MEDS ORDERED: Milk of Magnesia 30ml Ud ORAL PRN (12:00)
--- NOTE | 2019-09-11 12:00 | NUR ---
NURSE NOTES: Patient is still off the unit,unable to do restraints intervention.
--- NOTE | 2019-09-11 12:00 | NUR ---
CASE MANAGEMENT:REVIEW SI;RT HIP HEMIARTHROPLASTY ~ IN SURGERY NOW 98.9 80 22 134/77 97% ON RA CA 8.3 IS;IVF NS BOLUS TORADOL BACITRACIN MORPHINE MED SURG STATUS IN SURGERY DCP;FROM HOME WILL REQUIRE REHAB
[2019-09-11] MEDS ORDERED: Sodium Chloride 10ml vial INJ ONE (12:26)
[2019-09-11] MEDS ORDERED: ePHEDrine 50mg/ml Inj ONE (12:26)
--- NOTE | 2019-09-11 13:34 | Immediate Post-Op Evaluation ---
Immediate Post-Op Evalulation Immediate Post-Op Evalulation Procedure: R hip hemiarthroplasty Date of Evaluation: Sep 11, 2019 Time of Evaluation: 13:33 IV Fluids: 1000 Blood Products: none Estimated Blood Loss: 100 Urinary Output: 150 Blood Pressure Systolic: 126 Blood Pressure Diastolic: 72 Pulse Rate: 68 Respiratory Rate: 20 O2 Sat by Pulse Oximetry: 99 Temperature (Fahrenheit): 97.6 Pain Score (1-10): 1 Nausea: No Vomiting: No Complications none Patient Status: reacts, patent, none Hydration Status: adequate Maik Gardner MD Sep 11, 2019 13:34
--- NOTE | 2019-09-11 13:54 | NUR ---
NURSE NOTES: patient is still off the unit. restraints was discontinued. Will assess the patient when he cones back.
--- NOTE | 2019-09-11 14:34 | Diagnostic Imaging Report ---
Indication: Status post right hip surgery Technique: One view of the pelvis Comparison: 09/08/2019 Findings: Interim right hip hemiarthroplasty for repair of previously demonstrated right femoral neck fracture. Good anatomic alignment of the prosthesis. Retained air from the prior surgical exposure seen within the soft tissues. There is a Holguin catheter in place. Bones are somewhat osteoporotic Impression: Postoperative right hip. No unusual features
--- NOTE | 2019-09-11 14:40 | NUR ---
NURSE NOTES: patient came back from surgery, patient is lethargic but easily arousable and follows commands. PT able to move his legs, able to say his name right. no s/s of neurological deficit or pain @ this time. V/S stable. BP 136/94, pulse is 67, o2sat is 98% and afebrile. Breathing is even and unlabored. Patient's simpson is draining yellowish urine and noted with abduction pillow and SCD's on left leg only.right hip surgical site noted with clean and dry dressing. IV is intact. Will continue to follow doctor's order and monitor patient.
--- NOTE | 2019-09-11 14:48 | NUR ---
*-* INSURANCE *-* ALL AVAILABLE CLINICAL HAVE BEEN FAXED TO: Rosi CM: Bimal #[phone]
[2019-09-11] MEDS ORDERED: Miralax 17gm pkt ORAL PRN (15:00)
--- NOTE | 2019-09-11 15:11 | NUR ---
NURSE NOTES: RN requested IS to RT.
[2019-09-11] MEDS: D5 1/2NS w/KCl 20mEq 1,000 ML IV SCH (15:27)
--- NOTE | 2019-09-11 16:44 | NUR ---
DOCTOR NATUROPATHIC NOTE PT was mumbling to self and SCOTTY was unable to obtain any information/complete the home safety evaluation. SCOTTY left a vm to pt's son Roosevelt [phone]. Awaiting for call back. Addendum: 09/11/19 at 1716 by MANUEL ARMENTA SW ADD: pt seems understanding Telugu but mostly speaking in Dutch. Pt reports he has 7 sisters and brothers. Pt seems he does not recognize his son, Roosevelt. Pt appears to be confused. SCOTTY received a call from pt's son, Roosevelt Martin [phone]. Pt resides w/ his caregiver, Guillermo Loera at [address] [place] [address]. Pt receives [facility] $3200/mo. Roosevelt is the POA and next of kin of pt. Per Roosevelt, he has been trying to find an assisted living facility for pt but not succeeded d/t financial budget. Roosevelt concerns of pt's wandering and dx of dementia. Pt needs assistance w/ all ADLs. Roosevelt reports pt believes he still lives in [facility]. Roosevelt also reports the current residence is not suitable for pt i.e. no grab bars, low bathroom sink, stand up shower w/o sufficient light. Pt's son is in agreement w/ rehab placement upon DC. SNF is highly recommended for pt's safety. Guillermo Loera (caregiver) [phone]
--- NOTE | 2019-09-11 18:00 | Progress Note ---
DATE: 09/10/2019 SUBJECTIVE: I have been contacted by the nursing staff to inform me that the patient was not able to be transferred to [facility] for definitive care, and therefore requested a followup evaluation in anticipation of surgery. OBJECTIVE: GENERAL: The patient is resting comfortably in bed. EXTREMITIES: Right leg is shortened and internally rotated. There is pain with internal and external rotation. Posterior calf is soft. ASSESSMENT: Right displaced femoral neck fracture. DISCUSSION: At this point, recommend is to go ahead and prepare for surgery later on today. He is made NPO in anticipation of surgery. Risks, limitations, expectations, complication of the procedure were discussed in detail. All questions addressed. ADDENDUM TO THE NOTE: Due to two emergency cases required surgery, the surgery was postponed for tomorrow, therefore we will allow the patient to have regular diet and made NPO after midnight in anticipation of surgery tomorrow as long as no medical issues. Trey Cárdenas M.D. DR: RENAN JOB#: [id number] CC:
[2019-09-11] MEDS: Docusate Sod/Senna tab ORAL SCH (18:13)
--- NOTE | 2019-09-11 18:15 | NUR ---
NURSE NOTES: Patient is fully awake, not in respiratory/cardiac distress. V/S stable. Patient was able to tolerate with his food. No coughing with thin liquid. Patient tried to pull IV tubing and simpson cath and grabbed RN's hand and getting agitated. Talk therapy, TV done as diversional activities but ineffective.offered water, patient denied pain, Received order to apply bilateral soft wrist restraints. Explained to the patient about restraints. Will continue to monitor.
--- NOTE | 2019-09-11 19:44 | NUR ---
HAND-OFF: Report given to Anni and endorsed plan of care.
--- NOTE | 2019-09-11 20:08 | General Progress Note ---
Assessment/Plan Problem List: (1) Alzheimer disease ICD Codes: G30.9 - Alzheimer's disease, unspecified; F02.80 - Dementia in other diseases classified elsewhere without behavioral disturbance SNOMED: 95302075 (2) Hip fracture ICD Codes: S72.009A - Fracture of unspecified part of neck of unspecified femur , initial encounter for closed fracture SNOMED: 573229764 (3) Fall ICD Codes: W19.XXXA - Unspecified fall, initial encounter SNOMED: 6712387, 227716113 Assessment/Plan: postop hip surgery, stable Subjective ROS Limited/Unobtainable: Yes Allergies: Coded Allergies: No Known Allergies (Unverified , 09/08/19) Objective Last 24 Hour Vital Signs Date Time Temp Pulse Resp B/P (MAP) Pulse Ox O2 Delivery O2 Flow Rate FiO2 09/11/19 17:00 97.8 91 19 118/81 (93) 98 09/11/19 16:00 97.6 97 19 116/72 (87) 98 09/11/19 15:40 97.6 95 18 116/67 (83) 100 09/11/19 14:40 97.8 67 19 136/94 (108) 98 09/11/19 14:27 97.4 59 16 141/68 100 Nasal Cannula 3 09/11/19 14:15 55 14 146/71 100 Nasal Cannula 3 09/11/19 14:10 54 12 132/61 100 Nasal Cannula 3 09/11/19 14:00 53 11 128/60 100 Simple Mask 6 09/11/19 13:50 61 14 124/64 100 Simple Mask 6 09/11/19 13:40 61 15 119/44 100 Simple Mask 6 09/11/19 13:35 65 12 114/52 100 Simple Mask 6 09/11/19 13:34 68 20 99 09/11/19 13:29 97.0 62 12 125/53 100 Simple Mask 6 09/11/19 09:00 Room Air 09/11/19 08:25 132/71 09/11/19 08:00 98.4 60 19 132/71 (91) 99 09/11/19 04:00 97.3 67 22 134/77 (96) 97 09/11/19 00:00 98.9 80 18 118/72 (87) 97 09/10/19 21:00 Room Air Intake and Output 09/10/19 09/11/19 19:00 07:00 Intake Total 1020 ml 1100 ml Output Total 1200 ml 600 ml Balance -180 ml 500 ml Intake Oral 820 ml IV Total 200 ml 1100 ml Output Urine Total 1200 ml 600 ml Laboratory Tests 09/11/19 05:22: White Blood Count 8.0, Red Blood Count 4.31L, Hemoglobin 12.8L, Hematocrit 37.1L , Mean Corpuscular Volume 86, Mean Corpuscular Hemoglobin 29.7, Mean Corpuscular Hemoglobin Concent 34.6, Red Cell Distribution Width 11.6, Platelet Count 254, Mean Platelet Volume 5.4L, Neutrophils (%) (Auto) 65.6, Lymphocytes ( %) (Auto) 17.1L, Monocytes (%) (Auto) 13.6H, Eosinophils (%) (Auto) 2.7, Basophils (%) (Auto) 1.0, Sodium Level 137, Potassium Level 3.5, Chloride Level 103, Carbon Dioxide Level 24, Anion Gap 10, Blood Urea Nitrogen 13, Creatinine 0.6, Estimat Glomerular Filtration Rate > 60, Glucose Level 84, Calcium Level 8.3L Height (Feet): 5 Height (Inches): 3.00 Weight (Pounds): 132 General Appearance: no apparent distress, lethargic EENT: normal ENT inspection Neck: normal alignment Cardiovascular: normal rate, regular rhythm Respiratory/Chest: lungs clear, normal breath sounds Abdomen: non tender, soft Edema: no edema noted Arm (L), no edema noted Arm (R), no edema noted Leg (L), no edema noted Leg (R), no edema noted Pedal (L), no edema noted Pedal (R), no edema noted Generalized Neurologic: theology professor II-XII grossly normal Blake Moran MD Sep 11, 2019 20:08
--- NOTE | 2019-09-11 20:15 | Operative Note - Dictated ---
DATE OF OPERATION: 09/11/2019 PREOPERATIVE DIAGNOSIS: Right displaced femoral neck fracture. POSTOPERATIVE DIAGNOSIS: Right displaced femoral neck fracture. PROCEDURE: Right hip hemiarthroplasty. SURGEON: Trey Cárdenas M.D. ANESTHESIA: Spinal. INDICATION FOR PROCEDURE: Patient is a pleasant gentleman who has had a mechanical fall, diagnosed with displaced femoral neck fracture, indicative of operative fixation, right hip hemiarthroplasty. Risks, limitations, expectations, complications of the procedure discussed in detail with emergency contact, his nephew. All questions addressed. DESCRIPTION OF PROCEDURE: After informed consent was obtained, the patient was brought to the operating room. The patient was placed under spinal anesthesia. Right leg was prepped and draped in sterile manner. Time-out was performed. Posterolateral skin incision was made. Fascia aamir was incised. Piriformis, short external rotators were T'd. Suture neck cut below the fracture site was performed. Head was removed, measured 45 mm. Sequential broaching up to size 7 was performed. A 7-0 head-neck high-offset combination was selected. Hip was reduced. Leg lengths were clinically equal. Soft-tissue tension was recreated. Hip flexed to 120 degrees, 90 degrees flexion and internal rotation, 60 extension, external rotation was stable. At this point, the trial components were removed. Final implants were impacted into place. Arthrotomy site was closed with #1 Vicryl suture, 2-0 Vicryl suture, and 3-0 Monocryl suture. Compression dressing was applied. EBL: 50 mL COMPLICATIONS: None. SPECIMENS: None. IMPLANTS: Julian size 7 Accolade high-offset stem, 45 bipolar head with neck combo. Trey Cárdenas M.D. DR: Jolie JOB#: [id number] CC:
[2019-09-11] MEDS: ceFAZolin sod 2 GM in D5W 110 ML IV SCH (21:05)
[2019-09-11] MEDS: Enoxaparin 40mg Inj SUBQ SCH (21:07)
[2019-09-12 00:25] VITALS: BP 141/73
[2019-09-12 04:00] VITALS: BP 125/70
[2019-09-12] MEDS: ceFAZolin sod 2 GM in D5W 110 ML IV SCH (05:22)
[2019-09-12] MEDS: D5 1/2NS w/KCl 20mEq 1,000 ML IV SCH ×2 (05:23→18:16)
[2019-09-12 06:08] LABS: EOSINOPHILS % (AUTO) 1.1 % (0.0-3.0); HEMATOCRIT 34.4 % (42.0-52.0); HEMOGLOBIN 11.8 G/DL (14.2-18.0); LYMPHOCYTES % (AUTO) 13.5 % (20.0-45.0); MEAN CORPUSCULAR VOLUME 86 FL (80-99); MONOCYTES % (AUTO) 10.3 % (1.0-10.0); NEUTROPHILS % (AUTO) 74.1 % (45.0-75.0); PLATELET COUNT 221 K/UL (150-450); RED BLOOD COUNT 3.99 M/UL (4.70-6.10); RED CELL DISTRIBUTION WIDTH 11.7 % (11.6-14.8); WHITE BLOOD COUNT 8.4 K/UL (4.8-10.8)
[2019-09-12 06:28] LABS: ANION GAP 9 mmol/L (5-15); BLOOD UREA NITROGEN 13 mg/dL (7-18); CALCIUM 7.9 MG/DL (8.5-10.1); CARBON DIOXIDE 24 MMOL/L (21-32); CHLORIDE 102 MMOL/L (98-107); CREATININE 0.6 MG/DL (0.55-1.30); POTASSIUM 3.7 MMOL/L (3.5-5.1); SODIUM 135 MMOL/L (136-145)
--- NOTE | 2019-09-12 07:39 | NUR ---
HAND-OFF: Report given to Trent Churchill RN.
[2019-09-12 08:00] VITALS: BP 122/85
--- NOTE | 2019-09-12 08:04 | NUR ---
NURSE NOTES: pt is in the bed sleeping comfortably. respiration is even and unlabored. no acute distress noted at this time. call light is within reach, will continue to follow plan of care.
[2019-09-12] MEDS: Docusate Sod/Senna tab ORAL SCH ×2 (09:44→18:11)
[2019-09-12] MEDS: Docusate 100mg cap ORAL SCH ×3 (09:44→18:11)
[2019-09-12] MEDS: Lisinopril 2.5mg tab ORAL SCH (09:44)
--- NOTE | 2019-09-12 10:00 | 48 Hour Post Anesthesia Eval ---
Post Anesthesia Evaluation Procedure: R hip hemiarthroplasty Date of Evaluation: Sep 12, 2019 Time of Evaluation: 09:58 Blood Pressure Systolic: 122 0: 85 Pulse Rate: 91 Respiratory Rate: 19 Temperature (Fahrenheit): 100.6 O2 Sat by Pulse Oximetry: 98 Airway: patent Nausea: No Vomiting: No Pain Intensity: 2 Hydration Status: adequate Cardiopulmonary Status: Stable Mental Status/LOC: patient returned to baseline Follow-up Care/Observations: 0 Post-Anesthesia Complications: 0 Follow-up care needed: N/A Fredy Muniz MD Sep 12, 2019 10:00
--- NOTE | 2019-09-12 10:27 | NUR ---
DISCHARGE PLANNING PATIENT HAS BEEN REFERRED TO [facility] P: [phone] F: [phone] [facility] P: [phone] F: [phone] [facility] P: [phone] F: [phone] [facility] P: [phone] F: [phone] [facility] P: [phone] F: [phone] [facility] P: [phone] F: [phone] Addendum: 09/12/19 at 1159 by CLARI MONSIVAIS LVN LVN FOLLOW UP RAY AT [facility] CONFIRMED ACCEPTANCE CALL MADE TO PATIENTS ADRIEN PEREZ @ [phone] AND INFORMED OF PATIENTS ACCEPTANCE. [facility] QUESTIONS HE WOULD LIKE TO DISCUSS WITH FACILITY. WILL ANTICIPATE CALL BACK FROM PATIENTS SON TO CONFIRM.
[2019-09-12 12:00] VITALS: BP 152/79
--- NOTE | 2019-09-12 12:00 | NUR ---
CASE MANAGEMENT:REVIEW SI;POD #1 RT HIP HEMIARTHROPLASTY 100.0 91 20 141/73 94% ON RA NA 135 CA 7.9 IS;CEFAZOLIN ;;IV Q8 HRS IVF D5 @ 75 ML/HR MORPHINE IV Q3 HRS PRN NORCO PO Q6 HRS PRN LISINOPRIL PO QD LOVENOX SUBQ Q24 HRS PROTONIX PO QD MED SURG STATUS DCP;PATIENT FROM HOME SNF PLACEMENT FOR REHAB
--- NOTE | 2019-09-12 13:24 | NUR ---
P.T Note: P.T evaluation completed and tx initiated. Please refer to P.T evaluation for full report. Pt is alert, oriented to self only , highly confused however follows simple one step commands thru constant verbal and manual redirections. Pt. unable to accurately state and rate c/o however was moans/groans and becomes apprehensive and resistive when RLE is being passively moved. Pt responds well to one simple commands and extended time however still requires MAX A X 2 to complete supine to/from sitting transition due to tendency to resist and becomes retropulsive. Pt was able to sit at the EOB with BUE holding to bilateral rails of the bed with episodes of retropulsion. Pt was able to partially stand with MAX A X 1 x 10 secs but unable to take steps. Pt will benefit from skilled P.T service to increase mobility independence. Recommend SNF for further rehab intervention.
--- NOTE | 2019-09-12 13:42 | General Progress Note ---
Assessment/Plan Problem List: (1) Alzheimer disease ICD Codes: G30.9 - Alzheimer's disease, unspecified; F02.80 - Dementia in other diseases classified elsewhere without behavioral disturbance SNOMED: 09793890 (2) Hip fracture ICD Codes: S72.009A - Fracture of unspecified part of neck of unspecified femur , initial encounter for closed fracture SNOMED: 304504482 (3) Fall ICD Codes: W19.XXXA - Unspecified fall, initial encounter SNOMED: 8507475, 337345803 (4) UTI (urinary tract infection) ICD Codes: N39.0 - Urinary tract infection, site not specified SNOMED: 77097828 Assessment/Plan: postop hip surgery, stable uti rx amoxicillen pend final result Subjective ROS Limited/Unobtainable: Yes Allergies: Coded Allergies: No Known Allergies (Unverified , 09/08/19) Objective Last 24 Hour Vital Signs Date Time Temp Pulse Resp B/P (MAP) Pulse Ox O2 Delivery O2 Flow Rate FiO2 09/12/19 12:00 99.9 92 20 152/79 (103) 99 09/12/19 10:00 91 19 98 09/12/19 09:44 122/85 09/12/19 09:00 Room Air 09/12/19 08:00 100.6 91 19 122/85 (97) 98 09/12/19 04:47 99.0 09/12/19 04:00 100.8 90 20 125/70 (88) 98 09/12/19 00:25 99.4 85 20 141/73 (95) 98 09/11/19 21:23 Room Air 09/11/19 20:00 98.1 75 20 122/77 (92) 94 09/11/19 17:00 97.8 91 19 118/81 (93) 98 09/11/19 16:00 97.6 97 19 116/72 (87) 98 09/11/19 15:40 97.6 95 18 116/67 (83) 100 09/11/19 14:40 97.8 67 19 136/94 (108) 98 09/11/19 14:27 97.4 59 16 141/68 100 Nasal Cannula 3 09/11/19 14:15 55 14 146/71 100 Nasal Cannula 3 09/11/19 14:10 54 12 132/61 100 Nasal Cannula 3 09/11/19 14:00 53 11 128/60 100 Simple Mask 6 09/11/19 13:50 61 14 124/64 100 Simple Mask 6 Intake and Output 09/11/19 09/12/19 19:00 07:00 Intake Total 1945 ml 995 ml Output Total 550 ml 800 ml Balance 1395 ml 195 ml Intake Oral 120 ml IV Total 1825 ml 995 ml Output Urine Total 450 ml 800 ml Estimated Blood Loss 100 ml Laboratory Tests 09/12/19 04:44: White Blood Count 8.4, Red Blood Count 3.99L, Hemoglobin 11.8L, Hematocrit 34.4L , Mean Corpuscular Volume 86, Mean Corpuscular Hemoglobin 29.6, Mean Corpuscular Hemoglobin Concent 34.4, Red Cell Distribution Width 11.7, Platelet Count 221, Mean Platelet Volume 5.4L, Neutrophils (%) (Auto) 74.1, Lymphocytes ( %) (Auto) 13.5L, Monocytes (%) (Auto) 10.3H, Eosinophils (%) (Auto) 1.1, Basophils (%) (Auto) 1.0, Sodium Level 135L, Potassium Level 3.7, Chloride Level 102, Carbon Dioxide Level 24, Anion Gap 9, Blood Urea Nitrogen 13, Creatinine 0.6, Estimat Glomerular Filtration Rate > 60, Glucose Level 115H, Calcium Level 7.9L Height (Feet): 5 Height (Inches): 3.00 Weight (Pounds): 132 General Appearance: confused EENT: normal ENT inspection Neck: non-tender Cardiovascular: normal rate Respiratory/Chest: lungs clear Abdomen: non tender, soft Edema: no edema noted Arm (L), no edema noted Arm (R), no edema noted Leg (L), no edema noted Leg (R), no edema noted Pedal (L), no edema noted Pedal (R), no edema noted Generalized Neurologic: senior ios developer II-XII grossly normal Blake Moran MD Sep 12, 2019 13:42
--- NOTE | 2019-09-12 13:50 | NUR ---
DISCHARGE PLANNING PER RAY AT [facility], PATIENT ACCEPTED. WILL PROVIDE ROOM ASSIGNMENT UPON RECEIPT OF AUTHORIZATION FROM [facility] S/W PATIENTS SON ANA, CONFIRMED AGREEMENT FOR PATIENT TO TRANSFER TO [facility] UPON DISCHARGE FROM [facility] CALL MADE TO DREW AT [facility]. NO ANSWER VOICEMAIL LEFT REQUESTING CALL BACK
--- NOTE | 2019-09-12 14:15 | NUR ---
*-* INSURANCE *-* ALL AVAILABLE CLINICAL HAVE BEEN FAXED TO: Rosi CM: Bimal #[phone]
--- NOTE | 2019-09-12 14:42 | NUR ---
DISCHARGE PLANNING CALL RECEIVED FROM DREW AT [facility]. CONFIRMED PATIENT APPROVED TO TRANSFER TO [facility] UPON DISCHARGE FROM [facility] PROVIDED AUTH #'S FOR SNF AND AMBULANCE TRANSPORTATION [facility] [phone] AUTH# [id number] [facility] AUTH# [id number]
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
[2019-09-12 16:00] VITALS: BP 154/79
--- NOTE | 2019-09-12 19:27 | NUR ---
HAND-OFF: Report given to Daniel.
--- NOTE | 2019-09-12 19:30 | NUR ---
NURSE NOTES: Pt. received from SANDRA Churchill. Pt. awake, confused, alert x1, on 3L NC, no complaints of pain, no indication of shortness of breath. IV right AC 20g, asymptomatic, patent, running D5 1/2 NS at 75cc. Adduction pillow positioned well. Bilateral soft wrist restraints applied, sensations intact, pulses palpable, movement intact. No simpson, will monitor for urine output, POLISHER AND BUFFER aware. Bed is low and locked, side rails x2 up, bed alarm active, and call light is in reach. Will continue to monitor.
[2019-09-12 20:00] VITALS: BP 136/77
[2019-09-12] MEDS: Enoxaparin 40mg Inj SUBQ SCH (21:32)
[2019-09-13] VITALS: BP 135/72
[2019-09-13 04:00] VITALS: BP 138/74
--- NOTE | 2019-09-13 04:25 | NUR ---
NURSE NOTES: Pt. provided perineal care, bed sheets changed after noted to have large episode of urine incontinence. Restraints removed during care, pt. attempted to swing at DIRECTOR INFORMATICS during cleaning but was able to avoid. Pt. reassured and able to cooperate with cleaning thereafter. Condom catheter applied. Will continue to monitor.
[2019-09-13 07:08] LABS: ANION GAP 11 mmol/L (5-15); BLOOD UREA NITROGEN 9 mg/dL (7-18); CALCIUM 8.3 MG/DL (8.5-10.1); CARBON DIOXIDE 21 MMOL/L (21-32); CHLORIDE 105 MMOL/L (98-107); CREATININE 0.6 MG/DL (0.55-1.30); POTASSIUM 3.6 MMOL/L (3.5-5.1); SODIUM 137 MMOL/L (136-145)
[2019-09-13 07:25] LABS: BASOPHILS % (AUTO) 1.2 % (0.0-2.0); EOSINOPHILS % (AUTO) 0.8 % (0.0-3.0); HEMATOCRIT 37.5 % (42.0-52.0); HEMOGLOBIN 12.9 G/DL (14.2-18.0); LYMPHOCYTES % (AUTO) 11.2 % (20.0-45.0); MEAN CORPUSCULAR VOLUME 86 FL (80-99); MONOCYTES % (AUTO) 10.8 % (1.0-10.0); PLATELET COUNT 242 K/UL (150-450); RED BLOOD COUNT 4.37 M/UL (4.70-6.10); RED CELL DISTRIBUTION WIDTH 11.8 % (11.6-14.8); WHITE BLOOD COUNT 12.8 K/UL (4.8-10.8)
--- NOTE | 2019-09-13 07:30 | NUR ---
HAND-OFF: Report given to SANDRA Churchill.
--- NOTE | 2019-09-13 07:46 | NUR ---
NURSE NOTES: pt is in the bed awake and confused, noted pt. talking to himself, provided reality orientation. no SOB noted, IV site on right AC intact, no acute distress noted at this time, placed call light within reach, will continue to monitor.
[2019-09-13 08:00] VITALS: BP 127/96
[2019-09-13] MEDS: Docusate 100mg cap ORAL SCH ×2 (09:49→14:28)
[2019-09-13] MEDS: Docusate Sod/Senna tab ORAL SCH (09:50)
[2019-09-13] MEDS: Lisinopril 2.5mg tab ORAL SCH (09:50)
[2019-09-13] MEDS: D5 1/2NS w/KCl 20mEq 1,000 ML IV SCH (09:54)
--- NOTE | 2019-09-13 11:18 | NUR ---
COUNCILMAN NOTE CALL MADE TO DR REID IN RE TO ANTICIPATED DISCHARGE FOR TODAY 09/13/19. MESSAGED LEFT REQUESTING CALL BACK. Addendum: 09/13/19 at 1425 by CLARI MONSIVAIS LVN LVN NO CALL BACK RECEIVED FROM DR REID. 2ND CALL MADE WITH REQUEST FOR CALL BACK IN RE TO DC ORDER TO [facility]. S/W BREE WHO CONFIRMED PAGE SENT FOR DR REID. WILL AWAIT CALL BACK.
--- NOTE | 2019-09-13 11:30 | General Progress Note ---
Assessment/Plan Problem List: (1) Alzheimer disease ICD Codes: G30.9 - Alzheimer's disease, unspecified; F02.80 - Dementia in other diseases classified elsewhere without behavioral disturbance SNOMED: 78383445 (2) Hip fracture ICD Codes: S72.009A - Fracture of unspecified part of neck of unspecified femur , initial encounter for closed fracture SNOMED: 625400439 (3) Fall ICD Codes: W19.XXXA - Unspecified fall, initial encounter SNOMED: 8865706, 395311125 (4) UTI (urinary tract infection) ICD Codes: N39.0 - Urinary tract infection, site not specified SNOMED: 11492434 Assessment/Plan: postop hip surgery, stable uti rx amoxicillen pend final result, dc planning Subjective ROS Limited/Unobtainable: Yes Allergies: Coded Allergies: No Known Allergies (Unverified , 09/08/19) Objective Last 24 Hour Vital Signs Date Time Temp Pulse Resp B/P (MAP) Pulse Ox O2 Delivery O2 Flow Rate FiO2 09/13/19 09:50 127/96 09/13/19 09:00 Room Air 09/13/19 08:00 97.9 85 18 127/96 (106) 98 09/13/19 04:00 98.4 101 20 138/74 (95) 97 09/13/19 00:00 98.0 100 20 135/72 (93) 97 09/12/19 21:00 Room Air 09/12/19 20:00 97.4 101 20 136/77 (96) 97 09/12/19 16:00 98.8 100 20 154/79 (104) 99 09/12/19 12:00 99.9 92 20 152/79 (103) 99 Intake and Output 09/12/19 09/13/19 19:00 07:00 Intake Total 750 ml 825 ml Output Total 1200 ml 300 ml Balance -450 ml 525 ml Intake Oral 750 ml IV Total 825 ml Output Urine Total 1200 ml 300 ml # Voids 1 Laboratory Tests 09/13/19 05:55: White Blood Count 12.8#H, Red Blood Count 4.37L, Hemoglobin 12.9L, Hematocrit 37.5L, Mean Corpuscular Volume 86, Mean Corpuscular Hemoglobin 29.4, Mean Corpuscular Hemoglobin Concent 34.3, Red Cell Distribution Width 11.8, Platelet Count 242, Mean Platelet Volume 5.2L, Neutrophils (%) (Auto) 76.0H, Lymphocytes (%) (Auto) 11.2L, Monocytes (%) (Auto) 10.8H, Eosinophils (%) (Auto) 0.8, Basophils (%) (Auto) 1.2, Sodium Level 137, Potassium Level 3.6, Chloride Level 105, Carbon Dioxide Level 21, Anion Gap 11, Blood Urea Nitrogen 9, Creatinine 0.6, Estimat Glomerular Filtration Rate > 60, Glucose Level 110H, Calcium Level 8.3L Height (Feet): 5 Height (Inches): 3.00 Weight (Pounds): 132 General Appearance: no apparent distress EENT: normal ENT inspection Neck: normal alignment Cardiovascular: normal rate Respiratory/Chest: lungs clear Abdomen: non tender, soft Edema: no edema noted Arm (L), no edema noted Arm (R), no edema noted Leg (L), no edema noted Leg (R), no edema noted Pedal (L), no edema noted Pedal (R), no edema noted Generalized Neurologic: neuropsychiatrist II-XII grossly normal, disoriented Blake Moran MD Sep 13, 2019 11:30
--- NOTE | 2019-09-13 11:59 | NUR ---
DISCHARGE PLANNING CALL MADE TO [facility] IN RE TO PATIENTS ANTICIPATED DISCHARGE TODAY. S/W RAFA. PROVIDED BED ASSIGNMENT FOLLOWS 101-C SKILLED RN TO CALL [phone] FOR NURSE TO NURSE REPORT
[2019-09-13 12:00] VITALS: BP 131/87
--- NOTE | 2019-09-13 13:49 | NUR ---
*-* INSURANCE *-* ALL AVAILABLE CLINICAL HAVE BEEN FAXED TO: Rosi CM: Bimal #[phone]
--- NOTE | 2019-09-13 14:40 | NUR ---
INTERACTIVE MEDIA MARKETING DIRECTOR NOTE CALL BACK RECEIVED FROM DR REID. GAVE T/O TO DC TO [facility] TODAY. NOTED AND CARRIED OUT. AMBULANCE TRANSPORTATION SCHEDULED WITH [facility] @ [phone] WITH ETA @ [phone] PM AUTH #[id number] PROVIDED AND CONFIRMED W/PIERRE AT [facility]
--- NOTE | 2019-09-13 14:51 | NUR ---
Discharge report given to Kolby from [facility].
[2019-09-13] MEDS ORDERED: ACETAMINOPHEN325 M1 RC (15:09)
[2019-09-13] MEDS ORDERED: ACETAMINOPHEN325 M1 ORAL ×2 (15:10→15:11)
[2019-09-13] MEDS ORDERED: AMOXICILLI250 MG/5 M ORAL (15:12)
[2019-09-13] MEDS ORDERED: BISACODYL5 MG RECTAL (15:14)
[2019-09-13] MEDS ORDERED: DOCUSATE SODIU100 MG ORAL (15:18)
[2019-09-13] MEDS ORDERED: SENNOSIDES-DOC1 EACH ORAL (15:18)
[2019-09-13] MEDS ORDERED: FERROUS SULFAT325 MG ORAL (15:20)
[2019-09-13] MEDS ORDERED: NORCO 5-325 TA1 EAC1 ORAL (15:21)
[2019-09-13] MEDS ORDERED: NORCO 7.5-3251 EACH ORAL (15:22)
[2019-09-13] MEDS ORDERED: MILK OF MA400 MG/51 ORAL (15:22)
[2019-09-13] MEDS ORDERED: NITRO0.4 SL (15:23)
[2019-09-13] MEDS ORDERED: PANTOPRAZOLE SO40 MG ORAL (15:24)
[2019-09-13] MEDS ORDERED: OXYCODONE HCL5 MG ORAL (15:24)
[2019-09-13] MEDS ORDERED: MIRALAX17 G2 ORAL (15:25)
[2019-09-13] MEDS ORDERED: TEMAZEPAM7.5 MG ORAL (15:25)
--- NOTE | 2019-09-13 16:20 | NUR ---
P.T. NOTES S/P: APPROACHED PATIENT IN THE PM. FOR PATIENT'S SECOND TX. OF THE DAY. HOWEVER PATIENT IN THE PROCESS OF BEING DISCHARGE FROM HOSPITAL. OLGAO.
--- NOTE | 2019-09-13 16:45 | NUR ---
NURSE NOTES: Patient is discharged [facility] via [facility]. Prior discharge, patient is assessed by RN. A&O X 2; noted episodes confusion. Respiration is even and unlabored on 02 2L/min via NC. no facial grimacing for pain and discomfort. Skin is warm and dry to touch. Patient has abductor pillow in-place. no bleeding noted on right hip surgical site. No acute distress noted during discharge.
--- NOTE | 2019-09-14 23:29 | Discharge Summary ---
DATE OF ADMISSION: 09/08/2019 DATE OF DISCHARGE: 09/13/2019 PERTINENT HISTORY: The patient has Alzheimer disease. He had a ground level fall and right hip fracture. PERTINENT PHYSICAL FINDINGS: LUNGS: Clear. HEART: Regular rhythm. ABDOMEN: Soft. EXTREMITIES: No edema. NEUROLOGIC: He is alert and confused. No focal weakness. COURSE IN THE HOSPITAL: The patient was given supportive care and seen by Dr. Matthieu Cárdenas in orthopedic surgery consultation. He was cleared for surgery and underwent right hip hemiarthroplasty without problems. His vital signs remained stable. Arrangements were made for him to go to a long-term facility and he was discharged in stable condition for rehabilitation. PERTINENT PHYSICAL ON THE DAY OF DISCHARGE: LUNGS: Clear. HEART: Regular rhythm. ABDOMEN: Soft. EXTREMITIES: No edema. His pain was controlled and discharged in stable condition. FINAL DIAGNOSES: 1. Right hip fracture. 2. Ground-level fall. 3. Alzheimer. DISCHARGE DISPOSITION: To the ECF on a regular diet. DISCHARGE MEDICATIONS: Per the discharge medication list. FOLLOWUP: At the ECF by the assigned physician from his HMO and orthopedic , covering physician from the HMO. Blake Moran M.D. DR: NATHAN JOB#: [id number] CC:
--- NOTE | 2019-09-16 13:35 | NUR ---
*-* INSURANCE *-* DISCHARGE SUMMARY HAS BEEN FAXED TO: Rosi CM: Bimal #[phone]
== END 2019-09-13 16:44 | DRG 470 ==
LOC: EDBD 17:03 → EMR 18:41 → 4E 20:14 → EDBEDREQ 21:25 → 4E 09-12 00:06
PROC: 0SRR0JA Replacement of Right Hip Joint, Femoral Surface with Synthetic Substitute, Uncemented, Open Approach (ICD-10-PCS; principal; 2019-09-11 11:30)
DX: S72.001A Fracture of unspecified part of neck of right femur, initial encounter for closed fracture (principal); W19.XXXA Unspecified fall, initial encounter; G30.9 Alzheimer's disease, unspecified; F02.80 Dementia in other diseases classified elsewhere, unspecified severity, without behavioral disturbance, psychotic disturbance, mood disturbance, and anxiety
CPT/HCPCS: 36415; 70450; 72170; 80048; 80053; 81001; 82550; 83735; 83880; 84443; 85025; 85610; 85730; 86850; 86900; 86901; 87086; 93005; 94003; 94150; 96374; 99285; C9399; J2250